=== PATIENT | female | born 1975 | race Caucasian/White ===

== ENCOUNTER 2017-09-01 19:52 | Emergency (ER) | payer SELFPAY ==
[2017-09-01] MEDS: DIPHENHYDRAMINE 25 MG CAP PO (20:32)
[2017-09-01] MEDS: ACETAMINOPHEN 500 MG TAB PO (20:32)
== END 2017-09-01 21:29 | disposition home or self-care (01) ==
LOC: E/R 19:52
DX: K21.9 Gastro-esophageal reflux disease without esophagitis (principal); I16.0 Hypertensive urgency; I10 Essential (primary) hypertension; E11.9 Type 2 diabetes mellitus without complications
CPT/HCPCS: 99283